=== PATIENT | male | born 1970 | race Caucasian/White ===

== ENCOUNTER 2019-12-07 02:32 | Emergency (ER) | payer OTHER ==
[~2019-12-07] VITALS: Ht 172.7 cm; Wt 113.2 kg
[2019-12-07 02:43] VITALS: BP 153/102; Ht 172.7 cm; Wt 113.2 kg
== END 2019-12-07 03:24 | disposition home or self-care (01) ==
LOC: ED 02:32
DX: H60.11 Cellulitis of right external ear (principal); M54.9 Dorsalgia, unspecified
CPT/HCPCS: J1885